=== PATIENT | male | born 1960 | race African-American/Black ===

== ENCOUNTER 2019-06-26 19:02 | Emergency (ER) | payer BC ==
--- NOTE | 2019-06-26 20:27 | ED ---
Allergic Reaction/Systemic - HPI Summary HPI Summary: This patient is a 59 year old M presenting to ED with a chief complaint of upper lip swelling since 1729 today. Patient recently started a new Lisinopril regimen two days ago, but took none today. Patient denies swelling anywhere else in the mouth. The patient rates the pain 0/10 in severity. Symptoms aggravated by nothing. Symptoms alleviated by nothing. Patient reports top lip tingling and numbness. Patient denies SOB. - History of Current Complaint Chief Complaint: EDAllergicReaction Time Seen by Provider: 06/26/19 20:22 Hx Obtained From: Patient Onset/Duration: Gradual Onset, Started hours ago - 1729 today, Still Present Timing: Constant Severity Initially: Mild Severity Currently: Mild Pain Intensity: 0 Pain Scale Used: 0-10 Numeric Location: Discrete @ - Upper lip Character: Swelling Aggravating Factor(s): Nothing Alleviating Factor(s): Nothing Associated Signs And Symptoms: Positive: Negative - SOB - Allergies/Home Medications Allergies/Adverse Reactions: Allergies Allergy/AdvReac Type Severity Reaction Status Date / Time lisinopril Allergy Swelling Verified 06/26/19 19:06 PMH/Surg Hx/FS Hx/Imm Hx Endocrine/Hematology History: Denies: Hx Diabetes Cardiovascular History: Reports: Hx Hypertension History: Denies: Hx Renal Disease - Surgical History Surgery Procedure, Year, and Place: BILATERAL HERNIA REPAIR 1993, TESTICULAR HYDROCELE 2010 Infectious Disease History: No Infectious Disease History: Denies: Traveled Outside the [place] in Last 30 Days - Family History Known Family History: Positive: Hypertension - Social History Alcohol Use: Occasionally Hx Substance Use: No Substance Use Type: Reports: None Hx Tobacco Use: No Smoking Status (MU): Never Smoked Tobacco Review of Systems ENT: Negative - Tongue swelling, Other - Upper lip swelling Positive: Other - Lip numbness and tingling Negative: Shortness Of Breath All Other Systems Reviewed And Are Negative: Yes Physical Exam - Summary Physical Exam Summary: Appearance: Well-appearing, Well-nourished, lying in bed comfortable Skin: Warm, dry, no obvious rash Eyes: sclera anicteric, no conjunctival pallor ENT: symmetric angioedema of upper lip, no lingual edema Neck: deferred Respiratory: No signs of respiratory distress Cardiovascular: Appears well perfused, pulses are nml Abdomen: deferred Musculoskeletal: Moving all 4 extremities without obvious discomfort Neurological: Awake and alert, mentation is normal, speech is fluent and appropriate Psychiatric: affect is normal, does not appear anxious or depressed Triage Information Reviewed: Yes Vital Signs On Initial Exam: Initial Vitals Temp Pulse Resp BP Pulse Ox 98.6 F 73 16 161/104 94 06/26/19 19:04 06/26/19 19:04 06/26/19 19:04 06/26/19 19:04 06/26/19 19:04 Vital Signs Reviewed: Yes Diagnostics - Vital Signs Vital Signs Temp Pulse Resp BP Pulse Ox 06/26/19 19:04 98.6 F 73 16 161/104 94 - Laboratory Lab Statement: Any lab studies that have been ordered have been reviewed, and results considered in the medical decision making process. Allergic Reaction Course/Dx - Course Course Of Treatment: This patient is a 59 year old M presenting to ED with a chief complaint of upper lip swelling since 1729 today. Patient has angioedema but no lingual edema or other signs of concern for airway impingement. I advised the patient on the typical course of the reaction and advised him to stop taking his Lisinopril. Patient will be discharged home with dx of angioedema. Patient understands and agrees with this plan. - Diagnoses Provider Diagnoses: Angioedema Discharge - Sign-Out/Discharge Documenting (check all that apply): Patient Departure - Discharge Patient Received Moderate/Deep Sedation with Procedure: No - Discharge Plan Condition: Stable Disposition: HOME Patient Education Materials: Angioedema (ED) Referrals: Diego Cross DO [Primary Care Provider] - 3 Days Additional Instructions: This is a well known adverse reaction to medications like lisinopril, and it generally will recur if you take anything in that class of medicines (ANSHU inhibitors or ARBs), so you will need to avoid those in the future. Treatment is to stop the medication and as it works its way out of your system over the next several days the swelling will go down. It is very unusual for it to progress, so we should see you back if you notice swelling in the tongue or around the throat. Contact your doctor's office on Saturday to let them know what happened so they can update your chart and prescribe something else to treat your blood pressure. - Billing Disposition and Condition Condition: STABLE Disposition: Home - Attestation Statements Document Initiated by Scribe: Yes Documenting Scribe: Luiz Brunson Provider For Whom Leydi is Documenting (Include Credential): Anup Rojas MD Scribe Attestation: I, Luiz Brunson, scribed for Anup Rojas MD on 06/27/19 at 1928. Scribe Documentation Reviewed: Yes Provider Attestation: The documentation as recorded by the scribe, Luiz Brunson accurately reflects the service I personally performed and the decisions made by me, Anup Rojas MD Status of Scribe Document: Viewed
[2019-06-26 20:51] VITALS: BP 142/82
== END 2019-06-26 20:51 | disposition home or self-care (01) ==
LOC: ED 19:02
DX: T78.3XXA Angioneurotic edema, initial encounter (principal); I10 Essential (primary) hypertension
CPT/HCPCS: 99282

== ENCOUNTER → 2019-08-17 09:34 | Day surgery (SDC) | payer BC ==
[~2019-08-17 09:34] MED LIST: Buffered Lidocaine 1% SYRIN* 1 ML/SYRINGE INTRADERM ONE; Bupivacaine 0.25% SDV PF* 10 ML VIAL INJ ONE; Dexamethasone IV* 4 MG/ML 1 ML (4 MG) ONE; Glycopyrrolate IV* 0.2 MG/ML 1 ML VIAL ONE; HYDROmorphone INJ1* 1 MG/ML SYRINGE IV PRN; Ketorolac INJ* 30 MG/ML 1 ML VIAL ONE; Lactated Ringers 1000 ML Bag* 1,000 ML IV SCH; Midazolam* 1 MG/ML 2 ML VIAL (2 MG) ONE; Naloxone* 0.4 MG/ML 1 ML VIAL IV PRN; Neostigmine Methylsulfate* 3 MG/3 ML SYRINGE ONE; Ondansetron INJ* 2 MG/ML VIAL IV PRN; Ondansetron INJ* 2 MG/ML VIAL ONE; Propofol* 10 MG/ML 20 ML BTL ONE; Rocuronium* 10 MG/ML VIAL ONE; ceFAZolin 2 GM in NS PREMIX(*) 2 GM/100 ML BAG IVPB ONE; fentaNYL* 50 MCG/ML 2 ML VIAL (100 MCG VIAL) IV PRN; fentaNYL* 50 MCG/ML 2 ML VIAL (100 MCG VIAL) ONE; oxyCODONE/Acetamin 5/325 MG* TAB PO PRN
[2019-08-17 14:38] VITALS: BP 120/77
--- NOTE | 2019-08-17 23:18 | OP ---
DATE OF OPERATION: 08/17/19 [facility] DATE OF : 62 SURGEON: Federico Sanchez MD. RADIOLOGICAL EQUIPMENT SPECIALIST: LILI Pierce. PRE-OP DIAGNOSIS: Incisional hernia. POST-OP DIAGNOSIS: Incisional hernia. OPERATIVE PROCEDURE: Repair, robotic, ventral incisional hernia with mesh. INDICATIONS FOR PROCEDURE: Ventral hernia/incisional hernia. Risks included, but not limited to, bleeding, infection, recurrence of the hernia, injury to intraabdominal contents including the bowel and mesh complications were explained to the patient, who seemed to understand and agreed to the procedure and all questions were answered. DESCRIPTION OF PROCEDURE: The patient was taken to the operating room, placed supine. Preoperative antibiotics were given. After successful induction of general endotracheal anesthesia, the abdomen was prepped and draped in a sterile fashion. A time-out was performed indicating the correct patient and correct procedure. A 5 mm trocar was placed in the left upper quadrant under direct visualization of the camera using a bladeless Optiview trocar. Pneumo- peritoneum was achieved at 15 mmHg. A camera was placed in the abdomen and the abdomen was scanned. There was no obvious injury from trocar placement. An 8 mm robotic trocar was placed in the left lateral position and a 12 mm AirSeal trocar was placed in the left lower quadrant. The patient was tilted slightly towards the right. The robot was brought in and docked with an 8 mm robotic trocar piggybacking through the AirSeal trocar. Some omentum was gently reduced from the ventral hernia. The peritoneum was taken down laterally, left side, heading medial to the right side, creating a pocket and the hernia sac was completely removed along with a fair amount of adipose tissue that was in the hernia. The defect was then closed with a running 0 locking suture, tacking small amount of the hernia down to close the space. Prior to docking the robot, 2 sutures and the mesh had been placed in the abdomen under visualization of the camera. The initial was to close the fascia and tack the mesh to the closure from the middle of the mesh, and then the suture was run around the mesh, holding it in place. The peritoneum was then closed with the running V-lock stitch. The mesh was a small Ventralex mesh. The abdomen was scanned. There was no obvious injury or abnormalities noted. Pneumoperitoneum was released from the abdomen. The trocars were removed. Skin was closed with Monocryl and glue. He tolerated the procedure well. He was extubated and taken to Recovery in stable condition. [id number] #: [id number] KEVIN
== END | disposition home or self-care (01) ==
LOC: OR 09:34
PROVIDERS: ATTEND Surgery
DX: K43.2 Incisional hernia without obstruction or gangrene (principal); Z87.891 Personal history of nicotine dependence; I10 Essential (primary) hypertension; N43.3 Hydrocele, unspecified
CPT/HCPCS: 49654; S2900; C1781; J0690; J1100; J1885; J2250; J2405; J2704; J2710; J3010; J3490